=== PATIENT | female | born 1955 | race Hispanic/Latino ===

== ENCOUNTER 2019-06-05 05:45 | Day surgery (SDC) | payer BC, OTHER ==
[~2019-06-05] VITALS: Ht 160 cm; Wt 74.8 kg
[~2019-06-05 05:45] MED LIST: ASPI-555 PO; LEVO88TA4 PO; LOSA25TA41 PO; METO-408 PO; PANT40TA25 PO; ROSU10TA22 PO; SODIUM CHLORIDE 0.9% 1000ML 1,000 ML IV ONE; TICA90TA PO
[2019-06-05 06:16] VITALS: BP 112/54
[2019-06-05] MEDS ORDERED: PROPOFOL 1000 MG/100 ML 100 ML IV ONE (06:34)
[2019-06-05] MEDS ORDERED: LIDOCAINE HCL-MPF 2% 5ML VIAL ONE (06:34)
[2019-06-05 07:03] VITALS: BP 106/49
[2019-06-05 07:08] VITALS: BP 100/56
[2019-06-05 07:13] VITALS: BP 111/68
[2019-06-05 07:19] VITALS: BP 115/60
== END 2019-06-05 07:30 | disposition home or self-care (01) ==
LOC: ENDO 05:45 → DAH 05:45 → ENDO 07:30
PROVIDERS: ATTEND Internal Medicine
DX: Z12.11 Encounter for screening for malignant neoplasm of colon (principal); K63.5 Polyp of colon; K62.1 Rectal polyp; K29.00 Acute gastritis without bleeding; K31.89 Other diseases of stomach and duodenum; I12.9 Hypertensive chronic kidney disease with stage 1 through stage 4 chronic kidney disease, or unspecified chronic kidney disease; N18.1 Chronic kidney disease, stage 1; I25.10 Atherosclerotic heart disease of native coronary artery without angina pectoris; K21.9 Gastro-esophageal reflux disease without esophagitis; E78.2 Mixed hyperlipidemia; E03.9 Hypothyroidism, unspecified; I25.2 Old myocardial infarction; Z79.82 Long term (current) use of aspirin; Z79.899 Other long term (current) drug therapy; Z90.49 Acquired absence of other specified parts of digestive tract; Z90.710 Acquired absence of both cervix and uterus; Z95.818 Presence of other cardiac implants and grafts; Z72.89 Other problems related to lifestyle; Z87.891 Personal history of nicotine dependence; Z82.49 Family history of ischemic heart disease and other diseases of the circulatory system; Z83.3 Family history of diabetes mellitus
CPT/HCPCS: 43239; 45380; A4606; J2704; J3490; J7030

== ENCOUNTER 2019-06-18 09:51 | Observation (INO) | payer BC ==
[2019-06-18] VITALS (9 sets, daily range): BP systolic 99–129; BP diastolic 53–71
[~2019-06-18 09:51] MED LIST changes: -SODIUM CHLORIDE 0.9% 1000ML 1,000 ML IV ONE
[2019-06-18] MEDS ORDERED: ASPIRIN 325 MG TABLET ONE (10:17)
[2019-06-18 10:36] LABS: BASOPHILS % (AUTO) 1.3 % (0.0-5.0); EOSINOPHILS % (AUTO) 5.7 % (0.0-8.0); MEAN CORPUSCULAR HEMOGLOBIN 32.6 pg (27.0-33.0); MEAN CORPUSCULAR HGB CONC 34.9 g/dL (32.0-36.0); MEAN CORPUSCULAR VOLUME 93.4 fL (79-99); MONOCYTES % (AUTO) 8.8 % (3.0-13.0); NEUTROPHILS % (AUTO) 52.2 % (40.0-77.0); NUCLEATED RED BLOOD CELLS 0.1 % (0.0-0.19); PLATELET COUNT (AUTO) 218 K/uL (130-400); RED BLOOD CELL COUNT(AUTO) 4.07 MIL/uL (4.00-5.50); RED CELL DISTRIBUTION WIDTH 12.9 % (11.0-15.5); WHITE BLOOD COUNT (AUTO) 5.5 K/uL (4.8-10.8)
[2019-06-18] MEDS ORDERED: NITROGLYCERIN 1GM/1 INCH PACKET TD ONE (10:38)
[2019-06-18 10:52] LABS: CREATININE 0.7 mg/dL (0.5-1.5); INR 0.97 (0.85-1.15); PARTIAL THROMBOPLASTIN TIME 24.5 SEC (26.3-35.5); POTASSIUM 3.8 mmol/L (3.5-5.1); PROTHROMBIN TIME 10.2 SEC (9.6-11.6)
[2019-06-18 11:08] LABS: ALBUMIN 3.7 g/dL (3.5-5.0); BILIRUBIN,TOTAL 0.3 mg/dL (0.2-1.0); TOTAL PROTEIN, SERUM 7.3 g/dL (6.0-8.3)
[2019-06-18] MEDS ORDERED: ACETAMINOPHEN 325 MG TAB PO PRN ×2 (11:15)
[2019-06-18] MEDS ORDERED: ONDANSETRON HCL 4 MG/2 ML VIAL IV PRN (11:15)
[2019-06-18] MEDS ORDERED: BIVALIRUDIN 250 MG/VIAL IV ONE (11:33)
[2019-06-18] MEDS ORDERED: IOHEXOL 350 MG/ML 100ML INFUS..BTL IV ONE ×2 (11:34→13:32)
[2019-06-18] MEDS ORDERED: LIDOCAINE HCL 2% 20ML ONE (11:34)
[2019-06-18] MEDS ORDERED: NITROGLYCERIN 5 MG/ML 10 ML VIAL IV ONE (11:34)
[2019-06-18] MEDS ORDERED: IOHEXOL-350 50ML VIAL IV ONE (11:34)
[2019-06-18] MEDS ORDERED: MIDAZOLAM HCL 1 MG/ML 2ML VIAL ONE (12:24)
[2019-06-18] MEDS: NITROGLYCERIN 1GM/1 INCH PACKET TD SCH ×2 (12:30→20:03)
[2019-06-18] MEDS ORDERED: PRASUGREL HCL 10 MG TABLET ONE (13:06)
[2019-06-18] MEDS ORDERED: FENTANYL CITRATE PF 50 MCG/1 ML 2ML VIAL ONE (13:41)
[2019-06-18] MEDS ORDERED: SODIUM CHLORIDE 0.9% 1000ML 1,000 ML IV SCH (13:48)
--- NOTE | 2019-06-18 14:28 | NUR ---
ARRIVAL TO FLOOR PT IS AAOX4 DENIES CP DENIES SOB DENIES NV NO COMPLAINTS ARRIVED FROM CLINIC RECEPTIONIST. RIGHT GROIN PERCLOSE DRSNG IS IN PLACE, CLEAN DRY AND INTACT, NO OOZING NO HEMATOMA NOTED. BEDREST IN PROGRESS. FAMILY IS AT BEDSIDE. CALL LIGHT WITHIN REACH.
--- NOTE | 2019-06-18 14:45 | NUR ---
PAGED HOSPITALIST FOR NOTIFICATION OF PATIENT ARRIVAL AWAITING CALL BACK
--- NOTE | 2019-06-18 16:51 | NUR ---
HOSPITALIST CALLED BACK DR Temo GRANT AWARE OF PT ARRIVAL.
[2019-06-18 17:31] LABS: CREATINE KINASE, TOTAL 68 U/L (21-232); MYOGLOBIN 35 ng/mL (10-92); TROPONIN I < 0.04 ng/mL (0.00-0.06)
--- NOTE | 2019-06-18 19:34 | NUR ---
ASSESSMENT PATIENT IS RESTING IN BED. BEDREST UNTIL 2029. SURGICAL INCISION TO RIGHT GROIN IS CLEAN, DRY, AND INTACT. NO COMPLAINTS OF PAIN AT THIS TIME. NO SHORTNESS OF BREATH. NO SIGNS OF DISTRESS. CALL LIGHT WITHIN REACH. AT BEDSIDE. NO QUESTIONS, CONCERNS, OR NEEDS AT THIS TIME.
[2019-06-18] MEDS: METOPROLOL TARTRATE 25 MG TAB PO SCH (20:00)
[2019-06-18] MEDS: FAMOTIDINE/PF 20 MG/2 ML VIAL IV SCH (20:02)
--- NOTE | 2019-06-19 | NUR ---
ASSESSMENT PATIENT IS RESTING IN BED. COMPLAINTS OF HEADACHE EVEN THOUGH RECEIVED A PRN TYLENOL DOSE. PATIENT MADE AWARE HEADACHE IS SIDE EFFECT TO NITRO PASTE. PATIENT ASKED FOR NITRO PATCH TO BE REMOVED. NO COMPLAINTS OF SHORTNESS OF BREATH AT THIS TIME. NO SIGNS OF DISTRESS. RIGHT GROIN DRESSING IS CLEAN, DRY, AND INTACT. CALL LIGHT IS WITHIN REACH. NO NEEDS AT THIS TIME.
[2019-06-19 01:15] LABS: TROPONIN I 0.07 ng/mL (0.00-0.06)
[2019-06-19 03:26] VITALS: BP 134/68
[2019-06-19] MEDS: NITROGLYCERIN 1GM/1 INCH PACKET TD SCH ×2 (04:15→12:12)
--- NOTE | 2019-06-19 04:20 | NUR ---
ASSESSMENT PATIENT IS RESTING IN BED. NO COMPLAINTS OF PAIN AT THIS TIME. NITRO DOSE ORDERED REFUSED DUE TO HEADACHE. NO COMPLAINTS OF SHORTNESS OF BREATH AT THIS TIME. NO SIGNS OF DISTRESS. RIGHT GROIN DRESSING IS CLEAN, DRY, AND INTACT. CALL LIGHT IS WITHIN REACH. NO NEEDS AT THIS TIME.
[2019-06-19 04:30] LABS: BASOPHILS % (AUTO) 0.5 % (0.0-5.0); HEMATOCRIT 33.9 % (36-48); LYMPHOCYTES % (AUTO) 22.8 % (21.0-51.0); MEAN CORPUSCULAR HEMOGLOBIN 32.2 pg (27.0-33.0); MEAN CORPUSCULAR HGB CONC 34.3 g/dL (32.0-36.0); MEAN CORPUSCULAR VOLUME 93.9 fL (79-99); MONOCYTES % (AUTO) 6.7 % (3.0-13.0); PLATELET COUNT (AUTO) 191 K/uL (130-400); RED BLOOD CELL COUNT(AUTO) 3.61 MIL/uL (4.00-5.50); WHITE BLOOD COUNT (AUTO) 7.9 K/uL (4.8-10.8)
[2019-06-19 04:55] LABS: CREATININE 0.7 mg/dL (0.5-1.5); POTASSIUM 3.7 mmol/L (3.5-5.1); TROPONIN I 0.2 ng/mL (0.00-0.06)
[2019-06-19] MEDS ORDERED: LEVOTHYROXINE 88 MCG TABLET PO SCH (07:00)
[2019-06-19] MEDS: FAMOTIDINE/PF 20 MG/2 ML VIAL IV SCH (07:23)
[2019-06-19] MEDS: METOPROLOL TARTRATE 25 MG TAB PO SCH (07:48)
[2019-06-19 07:56] VITALS: BP 152/69
[2019-06-19] MEDS ORDERED: PRASUGREL HCL 10 MG TABLET PO SCH (09:00)
[2019-06-19] MEDS ORDERED: LOSARTAN 50 MG TABLET PO SCH (09:00)
[2019-06-19] MEDS ORDERED: ASPIRIN 325MG EC TAB 325 MG TABLET.DR PO SCH (09:00)
[2019-06-19] MEDS ORDERED: PANTOPRAZOLE SODIUM 40 MG TABLET.DR PO SCH (09:00)
[2019-06-19] MEDS ORDERED: ENOXAPARIN SODIUM 30 MG/0.3 ML SQ SCH (09:00)
[2019-06-19] MEDS ORDERED: ASPIRIN 81MG TAB.CHEW PO SCH (09:00)
[2019-06-19 09:46] LABS: TROPONIN I 0.23 ng/mL (0.00-0.06)
[2019-06-19] MEDS ORDERED: ROSU40TA21 PO (10:17)
[2019-06-19] MEDS ORDERED: PRAS10TA6 PO (10:17)
[2019-06-19] MEDS ORDERED: ROSU20TA31 PO (10:23)
[2019-06-19 11:37] VITALS: BP 144/77
--- NOTE | 2019-06-19 13:20 | NUR ---
HL REMOVED, CATHETER INTACT. DISCHARGE INSTRUCTIONS GIVEN TO PT. AND PT.'S SPOUSE AT BEDSIDE, VERBALIZED MUTUAL UNDERSTANDING.
== END 2019-06-19 14:00 | disposition home or self-care (01) ==
LOC: EDH 09:51 → EDHIP 11:13 → 2DH 14:36
PROVIDERS: ADMIT Internal Medicine; ATTEND Internal Medicine
DX: I25.110 Atherosclerotic heart disease of native coronary artery with unstable angina pectoris (principal); I25.5 Ischemic cardiomyopathy; I11.9 Hypertensive heart disease without heart failure; E78.5 Hyperlipidemia, unspecified; I25.2 Old myocardial infarction; R94.31 Abnormal electrocardiogram [ECG] [EKG]; E03.9 Hypothyroidism, unspecified; Z90.49 Acquired absence of other specified parts of digestive tract; Z90.710 Acquired absence of both cervix and uterus; Z95.5 Presence of coronary angioplasty implant and graft; Z79.82 Long term (current) use of aspirin; Z79.02 Long term (current) use of antithrombotics/antiplatelets; Z79.899 Other long term (current) drug therapy
CPT/HCPCS: 36415 ×2; 71045; 80048; 80053; 80061; 82550 ×5; 83874 ×5; 84484 ×5; 85025 ×2; 85610; 85730; 93005 ×5; 93458; 96374; 99283; C1760; C1769; C1876 ×2; C1887; C1894; C9600 ×2; G0378 ×24; J0583; J1644 ×2; J2250; J3010; J3490 ×3; J7030; Q9965 ×2; Q9967 ×3; 99156; 99157

== ENCOUNTER 2021-10-20 05:33 | Day surgery (SDC) | payer BC ==
[2021-10-14 10:23] LABS: EOSINOPHILS % (AUTO) 5.6 % (0.0-8.0); HEMATOCRIT 38.1 % (36-48); LYMPHOCYTES % (AUTO) 29.1 % (21.0-51.0); MEAN CORPUSCULAR HEMOGLOBIN 30.5 pg (27.0-33.0); MEAN CORPUSCULAR HGB CONC 33.6 g/dL (32.0-36.0); MEAN CORPUSCULAR VOLUME 90.7 fL (79-99); MONOCYTES % (AUTO) 7.1 % (3.0-13.0); PLATELET COUNT (AUTO) 226 K/uL (130-400); RED CELL DISTRIBUTION WIDTH 12.4 % (11.0-15.5); WHITE BLOOD COUNT (AUTO) 5.9 K/uL (4.8-10.8)
[2021-10-14 10:34] LABS: CREATININE 0.7 mg/dL (0.5-1.5); POTASSIUM 3.9 mmol/L (3.5-5.1)
[2021-10-14 10:36] LABS: INR 1.05 (0.85-1.15); PROTHROMBIN TIME 11.4 SEC (9.6-11.6)
[2021-10-14 10:37] LABS: PARTIAL THROMBOPLASTIN TIME 26.5 SEC (26.3-35.5)
[2021-10-19 12:46] VITALS: BP 138/68
[2021-10-20] VITALS (9 sets, daily range): BP systolic 104–128; BP diastolic 51–69
[~2021-10-20] VITALS: Ht 157.5 cm; Wt 81.8 kg
[~2021-10-20 05:33] MED LIST changes: +AEC81 PO; -ASPI-555 PO; +ISOS30TA92 PO; -LOSA25TA41 PO; +LOSA50TA64 PO; -METO-408 PO; +METO25TA6 PO; +MVIT PO; +NITR0.4T50 SL; -PANT40TA25 PO; -ROSU10TA22 PO; +ROSU20TA31 PO; -TICA90TA PO
[2021-10-20] MEDS ORDERED: 0.9%NACL 1000ML 1,000 ML IV ONE (06:15)
[2021-10-20] MEDS ORDERED: IOHEXOL-350 50ML VIAL IV ONE (07:12)
[2021-10-20] MEDS ORDERED: HEPARIN 10,000 UNIT/10ML (1,000 UNIT/ML) VIAL ONE (07:12)
[2021-10-20] MEDS ORDERED: NITROGLYCERIN 50MG VIAL ONE (07:12)
[2021-10-20] MEDS ORDERED: IOHEXOL 350 MG/ML 100ML INFUS..BTL IV ONE (07:12)
[2021-10-20] MEDS ORDERED: MIDAZOLAM HCL 1 MG/ML 2ML VIAL ONE (07:13)
[2021-10-20] MEDS ORDERED: LIDOCAINE HCL 400MG/20ML VIAL ONE (07:13)
[2021-10-20] MEDS ORDERED: ACETAMINOPHEN 500 MG TABLET ONE (11:42)
[2021-10-20] MEDS ORDERED: ACETAMINOPHEN 650MG ER TAB PO SCH (12:30)
== END 2021-10-20 12:09 | disposition home or self-care (01) ==
LOC: DAH 05:33
PROVIDERS: ATTEND Internal Medicine Cardiovascular Disease
DX: I25.119 Atherosclerotic heart disease of native coronary artery with unspecified angina pectoris (principal); I25.2 Old myocardial infarction; I10 Essential (primary) hypertension; E78.5 Hyperlipidemia, unspecified; E03.9 Hypothyroidism, unspecified; K21.9 Gastro-esophageal reflux disease without esophagitis; Z98.890 Other specified postprocedural states; Z90.710 Acquired absence of both cervix and uterus; Z90.49 Acquired absence of other specified parts of digestive tract; Z95.5 Presence of coronary angioplasty implant and graft; Z80.9 Family history of malignant neoplasm, unspecified; Z82.49 Family history of ischemic heart disease and other diseases of the circulatory system; Z83.3 Family history of diabetes mellitus; Z79.01 Long term (current) use of anticoagulants; Z79.899 Other long term (current) drug therapy
CPT/HCPCS: 36415; 71045; 80048; 85025; 85610; 85730; 93005; 93458; A4215; A4216; A4221; A4222; A4223 ×3; A4606; A4663; C1760; C1894; J1644; J3490; J7030; Q9965; Q9967 ×2; J2250